=== PATIENT | female | born 1990 | race Caucasian/White ===

== ENCOUNTER 2018-12-05 19:37 | Emergency (ER) | payer MEDICAID ==
[2018-12-05 19:56] VITALS: BP 123/67
--- NOTE | 2018-12-05 20:04 | UC ---
UC General HPI - HPI Summary HPI Summary: pain along thumb side of R wrist today. no injury. - History of Current Complaint Chief Complaint: UCUpperExtremity Stated Complaint: RT WRIST INJ Time Seen by Provider: 12/05/18 19:58 Hx Obtained From: Patient Hx Last Menstrual Period: 11/26/18 Has IUD Timing: Constant Pain Intensity: 8 Aggravating: movement Associated Signs & Symptoms: Negative: Edema, Fever - Allergy/Home Medications Allergies/Adverse Reactions: Allergies Allergy/AdvReac Type Severity Reaction Status Date / Time cinnamon Allergy Severe respiratory Verified 12/05/18 19:56 Penicillins Allergy Severe respiratory Verified 12/05/18 19:56 Home Medications: Home Medications Levonorgestrel (Iud) [Liletta IUD] 18.6 mcg IU DAILY 12/05/18 [History Confirmed 12/05/18] PMH/Surg Hx/FS Hx/Imm Hx Previously Healthy: Yes - Surgical History Surgical History: Yes Surgery Procedure, Year, and Place: R ULNAR BONE SX/shaved down--2009. HARDWARE REMOVED--2010 - Family History Known Family History: Positive: Non-Contributory - Social History Occupation: Employed Full-time Alcohol Use: Occasionally Substance Use Type: None Smoking Status (MU): Former Smoker Type: Cigarettes Amount Used/How Often: 1/2 PPD Length of Time of Smoking/Using Tobacco: 2.5 months Have You Smoked in the Last Year: Yes Review of Systems All Other Systems Reviewed And Are Negative: No Constitutional: Negative: Fever Skin: Negative: Rash Musculoskeletal: Negative: Arthralgia, Decreased ROM, Edema Physical Exam Triage Information Reviewed: Yes Appearance: Well-Appearing Vital Signs: Initial Vital Signs Temp 97.8 F 12/05/18 19:52 Pulse 108 12/05/18 19:52 Resp 16 12/05/18 19:52 BP 123/67 12/05/18 19:52 Pulse Ox 99 12/05/18 19:52 Vital Signs Reviewed: Yes Eyes: Positive: Conjunctiva Clear Respiratory: Positive: No respiratory distress Cardiovascular: Positive: RRR. Negative: Tachycardia Musculoskeletal: Positive: Other: - RUE: no gross deformity, swelling or discoloration. shoulder, elbow and hand are non tender. Hand has full s/v/m function. Radial side of wrist is tender over the tendon and + finklestein test. snuff box/carpals are non tender. Neurological: Positive: Alert Psychological: Positive: Age Appropriate Behavior Skin Exam: Normal Course/Dx - Differential Dx - Multi-Symptom Differential Diagnoses: Other - no concern for fx or infection. - Diagnoses Provider Diagnosis: De Quervain's tenosynovitis, right Discharge - Sign-Out/Discharge Documenting (check all that apply): Patient Departure All imaging exams completed and their final reports reviewed: No Studies - Discharge Plan Condition: Stable Disposition: HOME Prescriptions: Naproxen [Naprosyn 500 mg tab] 500 mg PO BID 5 Days #10 tablet Patient Education Materials: De Quervain Disease (ED) Referrals: Humble Ortega MD [Medical Doctor] - 5 Days - Billing Disposition and Condition Condition: STABLE Disposition: Home
== END 2018-12-05 20:13 | disposition home or self-care (01) ==
LOC: UCCORT 19:37
DX: M65.4 Radial styloid tenosynovitis [de Quervain] (principal); Z87.891 Personal history of nicotine dependence
CPT/HCPCS: 99213; G0463

== ENCOUNTER 2018-12-17 20:00 | Emergency (ER) | payer MEDICAID ==
[2018-12-17 21:07] VITALS: BP 116/65
[2018-12-17] MEDS ORDERED: Acetaminophen TAB* 325 MG PO ONE (22:05)
--- NOTE | 2018-12-17 22:08 | UC ---
UC General HPI - HPI Summary HPI Summary: 28-year-old female comes in with a complaint of of joint aches and increased skin sensitivity. This morning when the patient woke up she had pain in her joints primarily in her hip joints. Gradually the joint pain is increased into her other joints including her back. Shortly thereafter she started having hypersensitivity of the skin where is painful to touch her skin. When this first happened this morning she had a hard time walking due to the pain. No complaint of weakness. Overall the pain has decreased in the course of the day although it is still moderate in intensity. She's had chills all day but no measured fevers. She does have a headache that's primarily in the front and top of her head. Her neck has good range of motion. Denies any sore throat chest congestion chest pain shortness of breath abdominal pain nausea vomiting diarrhea or dysuria. She is not on any new medications. No hives. She has not tried any [id number] medications. - History of Current Complaint Chief Complaint: UCGeneralIllness Stated Complaint: JOINT PAIN,SKIN SENSITIVE TO TOUCH Time Seen by Provider: 12/17/18 21:51 Hx Last Menstrual Period: 12/17/18 Pain Intensity: 8 - Allergy/Home Medications Allergies/Adverse Reactions: Allergies Allergy/AdvReac Type Severity Reaction Status Date / Time cinnamon Allergy Severe respiratory Verified 12/17/18 21:02 Penicillins Allergy Severe respiratory Verified 12/17/18 21:02 PMH/Surg Hx/FS Hx/Imm Hx Previously Healthy: Yes - Surgical History Surgical History: Yes Surgery Procedure, Year, and Place: R ULNAR BONE SX/shaved down--2009. HARDWARE REMOVED--2010 - Family History Known Family History: Positive: Renal Disease - BROTHER WITH PCKD, Non- Contributory - Social History Alcohol Use: Rare Substance Use Type: None Smoking Status (MU): Former Smoker Type: Cigarettes Amount Used/How Often: 1/2 PPD Length of Time of Smoking/Using Tobacco: 2.5 months Have You Smoked in the Last Year: Yes Review of Systems All Other Systems Reviewed And Are Negative: Yes Constitutional: Positive: Other - SEE HPI Skin: Positive: Other - SEE HPI Eyes: Positive: Negative ENT: Positive: Negative Respiratory: Positive: Negative Cardiovascular: Positive: Negative Gastrointestinal: Positive: Negative Genitourinary: Positive: Negative Motor: Positive: Other - SEE HPI Musculoskeletal: Positive: Other: - SEE HPI Neurological: Positive: Headache Psychological: Positive: Negative Is Patient Immunocompromised?: No Physical Exam Triage Information Reviewed: Yes Appearance: Well-Appearing, Well-Nourished, Pain Distress - mild with palpation of skin Vital Signs: Initial Vital Signs Temp 99.1 F 12/17/18 21:02 Pulse 107 12/17/18 21:02 Resp 16 12/17/18 21:02 BP 116/65 12/17/18 21:02 Pulse Ox 99 12/17/18 21:02 Vital Signs Reviewed: Yes Eye Exam: Normal Eyes: Positive: Conjunctiva Clear ENT: Positive: Pharynx normal, TMs normal Neck: Positive: Supple Respiratory: Positive: Lungs clear, Normal breath sounds, No respiratory distress Cardiovascular: Positive: RRR Abdomen Description: Positive: Nontender, Soft Musculoskeletal: Positive: Strength Intact, ROM Intact Neurological: Positive: Alert, Muscle Tone Normal Psychological: Positive: Age Appropriate Behavior Skin: Positive: Other - tender to palpation, no rash, no hives. Course/Dx - Course Course Of Treatment: The cause of the patient's symptoms is not obvious. She has polyarthralgia and also her skin is tender diffusely. Here she has no fever. Mildly tachycardic. Her blood pressure is not low for her age. She has no sore throat no cough no chest congestion no chest pain no shortness of breath no abdominal pain no dysuria. She does have a headache with back pain but clinically she does not have meningitis at this time. We discussed the signs and symptoms of meningitis. We're going to check a CBC CRP CMP. There is a history of renal failure and the family. Go to treat with acetaminophen. We discussed that if she worsens as any questions concern she needs to get reevaluated in the emergency room right away. - Diagnoses Provider Diagnosis: Allodynia, Arthralgia Discharge - Sign-Out/Discharge Documenting (check all that apply): Patient Departure All imaging exams completed and their final reports reviewed: No Studies - Discharge Plan Condition: Stable Disposition: HOME Patient Education Materials: Arthralgia (ED) Forms: *Work Release Referrals: Catia Kc PA [Primary Care Provider] - Additional Instructions: FOLLOW UP WITH YOUR DOCTOR. GO TO THE EMERGENCY DEPARTMENT YOUR CONDITION WORSENS; PAIN, FEVER, YOU FEEL ILL , HEADACHE, STIFF NECK AND/OR BACK, CHEST PAIN, SHORTNESS OF BREATH OR ANY QUESTIONS OR CONCERNS. - Billing Disposition and Condition Condition: STABLE Disposition: Home
[2018-12-18 11:08] LABS: Hematocrit 40 % (35-47); Hemoglobin 13.6 g/dL (12.0-16.0); Mean Corpuscular HGB Conc 34 g/dL (31-36); Mean Corpuscular Hemoglobin 29 pg (27-31); Mean Corpuscular Volume 84 fL (80-97); Mean Platelet Volume 9.9 fL (7.4-10.4); Platelet Count 242 10^3/uL (150-450); Red Blood Count 4.74 10^6 /uL (3.70-4.87); Red Cell Distribution Width 14 % (10-15); White Blood Count 8.8 10^3/uL (3.5-10.8)
[2018-12-18 11:44] LABS: Albumin 4.3 g/dL (3.2-5.2); Albumin/Globulin Ratio 1.2 (1-3); BUN/Creatinine Ratio 16.2 (8-20); C Reactive Protein 69.71 mg/L (<8.01); Calcium 9.5 mg/dL (8.6-10.3); EGFR African American 123.8 (>60); EGFR Non-African American 102.3 (>60); Globulin 3.6 g/dL (2-4); Potassium 4.6 mmol/L (3.5-5.0); Total Bilirubin 0.6 mg/dL (0.2-1.0); Total Protein 7.9 g/dL (6.4-8.9)
[2018-12-18 12:03] LABS: ABS Lymphocytes 1.1 10^3/ul (1.0-4.8); ABS Monocytes 0.9 10^3/ul (0-0.8); ABS Neutrophils 6.8 10^3/ul (1.5-7.7); Eosinophil % 0.1 %; Lymphocyte % 12.9 %; Nucleated Red Blood Cells % 0.1
--- NOTE | 2018-12-19 07:20 | UC ---
- Progress Note Progress Note: All of your blood work came back normal, except your C reactive protein which is a nonspecific marker for inflammation or illness came back elevated. This could be in the setting of your recent illness, but if symptoms have persisted recommend follow up with your primary care physician for further work up. Course/Dx - Diagnoses Provider Diagnoses: Allodynia, Arthralgia Discharge - Sign-Out/Discharge Documenting (check all that apply): Post-Discharge Follow Up All imaging exams completed and their final reports reviewed: No Studies - Discharge Plan Condition: Stable Disposition: HOME Patient Education Materials: Arthralgia (ED) Forms: *Work Release Referrals: Catia Kc PA [Primary Care Provider] - Additional Instructions: FOLLOW UP WITH YOUR DOCTOR. GO TO THE EMERGENCY DEPARTMENT YOUR CONDITION WORSENS; PAIN, FEVER, YOU FEEL ILL , HEADACHE, STIFF NECK AND/OR BACK, CHEST PAIN, SHORTNESS OF BREATH OR ANY QUESTIONS OR CONCERNS. - Billing Disposition and Condition Condition: STABLE Disposition: Home
== END 2018-12-17 22:28 | disposition home or self-care (01) ==
LOC: UCCORT 20:00
DX: M79.7 Fibromyalgia (principal); M25.552 Pain in left hip; M25.551 Pain in right hip; Z87.891 Personal history of nicotine dependence
CPT/HCPCS: 36415; 80053; 85025; 85060; 86140; 99212; A9270-GY; G0463